=== PATIENT | female | born 1945 | race Caucasian/White ===

== ENCOUNTER 2022-11-01 08:54 | Inpatient (IN) | payer OTHER ==
[~2022-11-01] VITALS: Ht 154.9 cm; Wt 63.0 kg
--- NOTE | 2022-11-01 09:04 | NUR ---
COVID TEST COLLECTED AND SENT
--- NOTE | 2022-11-01 09:18 | NUR ---
IV established in R FA 20G
--- NOTE | 2022-11-01 09:19 | NUR ---
Blood drawn and sent to lab
[2022-11-01 09:31] LABS: BASOPHILS % (AUTO) 0.1 % (0.0-2.0); EOSINOPHILS % (AUTO) 0.4 % (0.0-6.0); HEMATOCRIT 34 % (33-45); HEMOGLOBIN 10.7 g/dL (11.5-14.8); LYMPHOCYTES # (AUTO) 0.2 K/uL (0.8-4.8); LYMPHOCYTES % (AUTO) 1.8 % (20.0-44.0); MEAN CORPUSCULAR HGB CONC 32 g/dl (31.0-36.0); MEAN CORPUSCULAR VOLUME 98 fL (82-100); MONOCYTES # (AUTO) 0.6 K/uL (0.1-1.30); MONOCYTES % (AUTO) 4.9 % (2.0-12.0); NEUTROPHILS # (AUTO) 10.8 K/uL (1.8-8.9); NEUTROPHILS % (AUTO) 92.8 % (43.0-81.0); PLATELET COUNT (AUTO) 131 K/uL (150-450); RED BLOOD CELL COUNT(AUTO) 3.44 MIL/uL (4.0-5.2); WHITE BLOOD COUNT (AUTO) 11.7 K/uL (4.3-11.0)
[2022-11-01 09:42] LABS: CALCIUM, SERUM 10.8 mg/dL (8.5-10.1); CARBON DIOXIDE 21 mmol/L (21-32); CHLORIDE 105 mmol/L (98-107); CREATININE 1.4 mg/dL (0.6-1.3); POTASSIUM 4.1 mmol/L (3.5-5.1); SODIUM SERUM 139 mmol/L (136-145); UREA NITROGEN, BLOOD 45 mg/dL (7-18)
[2022-11-01 09:45] LABS: GLUCOSE 492 mg/dL (74-106)
[2022-11-01 09:46] LABS: BAND % (MANUAL) 2 % (0.0-5.0); LYMPHOCYTES % (MANUAL) 2 % (16-48); MONOCYTES % (MANUAL) 4 % (0-11.0); NEUTROPHILS % (MANUAL) 92 (42-76)
--- NOTE | 2022-11-01 09:48 | NUR ---
PT TAKEN TO CT VIA LC
[2022-11-01 09:52] LABS: ALANINE AMINOTRANSFERASE 24 U/L (12-78); ALBUMIN 2.5 g/dL (3.4-5.0); ALKALINE PHOSPHATASE 128 U/L (46-116); ASPARTATE AMINOTRANSFERASE 18 U/L (15-37); BILIRUBIN,DIRECT 0.2 mg/dL (0.0-0.2); BILIRUBIN,TOTAL 0.6 mg/dL (0.2-1.0); TOTAL PROTEIN, SERUM 7.5 g/dL (6.4-8.2)
--- NOTE | 2022-11-01 09:54 | NUR ---
PT RETURNED FROM CT VIA [facility]
[2022-11-01] MEDS ORDERED: INSULIN REGULAR, HUMAN 100 UNIT/ML 10 ML VIAL ONE (09:58)
[2022-11-01] MEDS ORDERED: INSULIN REGULAR, HUMAN 100 UNIT/ML 10 ML VIAL SQ ONE (10:00)
[2022-11-01] MEDS ORDERED: IV NS 0.9% 1,000 ML BAG IV ONE (10:00)
--- NOTE | 2022-11-01 10:13 | NUR ---
urine collected and sent to lab
--- NOTE | 2022-11-01 10:27 | NUR ---
Blood cultures obtained and sent to lab
--- NOTE | 2022-11-01 10:45 | NUR ---
BUDGET EXAMINER CALLED
--- NOTE | 2022-11-01 10:58 | NUR ---
CALLED NURSING SUP REGARDING PT BED
[2022-11-01 11:16] LABS: BILIRUBIN,URINE NEGATIVE (NEGATIVE); COLOR,URINE YELLOW (YELLOW); LEUKOCYTE ESTERASE ,URINE TRACE (NEGATIVE); NITRITE, URINE NEGATIVE (NEGATIVE); PROTEIN,URINE 2+ mg/dl (NEGATIVE); UGLUCOSE 3+ mg/dL (NEGATIVE)
[2022-11-01] MEDS ORDERED: DEXTROSE 50%-WATER 50 ML DISP.SYRIN IV PRN (11:30)
[2022-11-01] MEDS ORDERED: MAGNESIUM HYDROXIDE 30 ML UDC PO PRN (11:30)
[2022-11-01] MEDS ORDERED: MAG HYDROX/AL HYDROX/SIMETH 30 ML UDC PO PRN (11:30)
[2022-11-01] MEDS ORDERED: Z GUARD REMEDY 4 OZ OINT TP PRN (11:30)
[2022-11-01] MEDS ORDERED: ONDANSETRON HCL/PF 4 MG/2 ML VIAL IVP PRN (11:30)
--- NOTE | 2022-11-01 11:32 | NUR ---
REPORT GIVEN TO JUDI FOR CONTINUATION OF CARE
[2022-11-01 11:51] LABS: BACTERIA,URINE Many /HPF (None Seen); SQUAMOUS EPITHELIAL CELL,UR Few /HPF (None Seen); WBC,URINE 21-50 /HPF (0-3)
[2022-11-01 12:00] VITALS: BP 131/80
[2022-11-01] MEDS: ENOXAPARIN SODIUM 30 MG/0.3 ML DISP.SYRIN SQ SCH (12:03)
[2022-11-01] MEDS: INSULIN REGULAR, HUMAN 100 UNIT/ML 3 ML VIAL SQ PRN ×3 (12:03→21:56)
[2022-11-01] MEDS: BLOOD SUGAR DIAGNOSTIC 1 EACH STRIP VI SCH ×3 (12:04→21:54)
[2022-11-01] MEDS ORDERED: ATOR40TA GT (13:44)
[2022-11-01] MEDS ORDERED: METO25TA6 PO (13:44)
[2022-11-01] MEDS ORDERED: SERT100T PO ×2 (13:44)
[2022-11-01] MEDS ORDERED: METF-440 PO (13:44)
[2022-11-01] MEDS ORDERED: PANT40TA2 PO (13:44)
[2022-11-01] MEDS ORDERED: AMLO-213 PO (13:44)
[2022-11-01] MEDS ORDERED: LOSA25TA27 PO (13:44)
[2022-11-01] MEDS ORDERED: CETI10TA14 PO (13:44)
--- NOTE | 2022-11-01 13:50 | NUR ---
PUT PATIENT'S HOME MED IN THE COMPUTER. I INFORMED DR. VIKI GASTELUM TO RECONCILE MEDS.
[2022-11-01 16:00] VITALS: BP 146/72
[2022-11-01] MEDS: METOPROLOL TARTRATE 25 MG TABLET PO SCH (17:01)
[2022-11-01] MEDS: ACETAMINOPHEN 325 MG TABLET PO PRN (17:01)
--- NOTE | 2022-11-01 17:59 | NUR ---
END OF SHIFT SUMMARY PATIENT IS A/O X3-4. ENGLISH SPEAKING ONLY. SR ON TELE. FEBRILE, TYLENOL GIVEN. IV ACCESS ON RFA #20, NS RUNNING AT 75 ML/HR. BLOOD GLUCOSE MONITORED, INSULIN GIVEN PER MD-SLIDING SCALE. FAMILY AT BEDSIDE. SAFETY MEASURES MAINTAINED. BED IN LOWEST POSITION, BRAKES LOCKED. SIDE RAILS UP X2. CALL LIGHT WITHIN REACH. WILL ENDORSE CONTINUITY OF CARE TO ONCOMING SHIFT.
[2022-11-01 20:00] VITALS: BP 117/47
[2022-11-01] MEDS: IV NS 0.9% 1,000 ML IV PRN (20:41)
--- NOTE | 2022-11-01 21:56 | NUR ---
ACCU CHECK Blood glucose 264mg/dl. Given insulin per sliding scale parameters.
[2022-11-02] VITALS: BP 133/57
--- NOTE | 2022-11-02 05:53 | NUR ---
END OF SHIFT REPORT Patient in bed, Alert Oriented x3. Oxygen sat high 90's in RA. Sinus rhythm in the nailing machine feeder, HR 99. IV Right arm intact, IVF continuous. Low grade temp during the night 99F, no c/o chills. Blood glucose monitored with insulin given per sliding parameters. Voided urine, incontinent care done. Plan for PT eval. Nephro consult. Continue IVF as ordered. Fall precaution maintained. Will endorse to oncoming RN.
[2022-11-02] MEDS: BLOOD SUGAR DIAGNOSTIC 1 EACH STRIP VI SCH ×4 (06:18→22:46)
[2022-11-02 06:22] LABS: BASOPHILS % (AUTO) 0.1 % (0.0-2.0); EOSINOPHILS % (AUTO) 0.6 % (0.0-6.0); HEMATOCRIT 30 % (33-45); HEMOGLOBIN 9.7 g/dL (11.5-14.8); LYMPHOCYTES # (AUTO) 0.4 K/uL (0.8-4.8); LYMPHOCYTES % (AUTO) 3.3 % (20.0-44.0); MEAN CORPUSCULAR HGB CONC 33 g/dl (31.0-36.0); MEAN CORPUSCULAR VOLUME 94 fL (82-100); MONOCYTES # (AUTO) 0.8 K/uL (0.1-1.30); MONOCYTES % (AUTO) 7.8 % (2.0-12.0); NEUTROPHILS # (AUTO) 9.6 K/uL (1.8-8.9); NEUTROPHILS % (AUTO) 88.2 % (43.0-81.0); PLATELET COUNT (AUTO) 102 K/uL (150-450); RED BLOOD CELL COUNT(AUTO) 3.15 MIL/uL (4.0-5.2); WHITE BLOOD COUNT (AUTO) 10.9 K/uL (4.3-11.0)
[2022-11-02] MEDS: INSULIN REGULAR, HUMAN 100 UNIT/ML 3 ML VIAL SQ PRN ×4 (06:37→22:50)
[2022-11-02] MEDS: IV NS 0.9% 1,000 ML IV PRN (06:38)
[2022-11-02 06:49] LABS: CALCIUM, SERUM 9.5 mg/dL (8.5-10.1); CARBON DIOXIDE 21 mmol/L (21-32); CHLORIDE 110 mmol/L (98-107); GLUCOSE 175 mg/dL (74-106); MAGNESIUM 1.4 mg/dL (1.8-2.4); PHOSPHORUS 2.7 mg/dL (2.5-4.9); POTASSIUM 3.4 mmol/L (3.5-5.1); SODIUM SERUM 143 mmol/L (136-145); UREA NITROGEN, BLOOD 34 mg/dL (7-18)
--- NOTE | 2022-11-02 07:16 | NUR ---
FURNACE FILLER NOTES RECEIVED PATIENT AWAKE IN BED. PATIENT IS A/O X3-4. [place]UR[place] AND [place] SPEAKING ONLY. ON ROOM AIR, TOLERATING WELL, BREATHING EVENLY AND UNLABORED. PATIENT CONTINUES ON TELE MONITORING WITH CURRENT READING OF SR 85. IV ACCESS ON RFA G#20, NS RUNNING AT 75 ML/HR PATENT, INTACT, AND FLUSHES WELL. NO SOB, DENIES PAIN OR ANY DISCOMFORT AT THIS TIME. SAFETY MEASURES MAINTAINED. BED IN LOWEST POSITION, BRAKES LOCKED. SIDE RAILS UP X2. CALL LIGHT WITHIN REACH. WILL CONTINUE TO MONITOR PATIENT.
[2022-11-02] MEDS ORDERED: POTASSIUM CHLORIDE 20 MEQ TAB.PRT.SR PO ONE (07:30)
[2022-11-02] MEDS ORDERED: MAGNESIUM OXIDE 400 MG TABLET PO ONE (07:30)
[2022-11-02 08:00] VITALS: BP 137/60
[2022-11-02] MEDS: CEFTRIAXONE 1 G in IV D5W 50 ML IV SCH (08:21)
[2022-11-02] MEDS: cetrizine 10 MG TABLET PO SCH (08:23)
[2022-11-02] MEDS: METOPROLOL TARTRATE 25 MG TABLET PO SCH ×2 (08:23→16:18)
[2022-11-02] MEDS: PANTOPRAZOLE 40 MG TABLET.DR PO SCH (08:23)
[2022-11-02] MEDS: SERTRALINE HCL 50 MG TABLET PO SCH (08:23)
[2022-11-02] MEDS: LOSARTAN POTASSIUM 25 MG TABLET PO SCH (08:23)
[2022-11-02] MEDS: ATORVASTATIN 40 MG TABLET GT SCH (08:24)
[2022-11-02] MEDS: ENOXAPARIN SODIUM 30 MG/0.3 ML DISP.SYRIN SQ SCH (08:28)
[2022-11-02] MEDS: AMLODIPINE BESYLATE 10 MG TABLET PO SCH (08:29)
[2022-11-02] MEDS ORDERED: POTASSIUM CHLORIDE 20 MEQ POWDER PACKET PO ONE (09:00)
[2022-11-02] MEDS ORDERED: DORZ10DR11 EACHEYE (10:31)
[2022-11-02] MEDS ORDERED: TRAZ-182 PO (10:31)
[2022-11-02] MEDS ORDERED: INSU100I14 SQ (10:31)
[2022-11-02] MEDS ORDERED: INSU100V7 SQ (10:31)
[2022-11-02] MEDS ORDERED: LATA2.5D15 EACHEYE (10:31)
[2022-11-02] MEDS ORDERED: Magnesium 1GM/D5W 100ML PREMIX 100 ML IV SCH (11:00)
[2022-11-02 12:32] VITALS: BP 124/61
[2022-11-02] MEDS: ACETAMINOPHEN 325 MG TABLET PO PRN (12:38)
[2022-11-02 16:00] VITALS: BP 109/52
--- NOTE | 2022-11-02 18:41 | NUR ---
INTERMEDIATE ACCOUNTANT CLOSING NOTES PATIENT AWAKE IN BED. PATIENT IS A/O X4, PARAGUAYAN SPEAKING ONLY. ON ROOM AIR, TOLERATING WELL, BREATHING EVENLY AND UNLABORED. PATIENT CONTINUES ON TELE MONITORING WITH CURRENT READING OF SR 95. IV ACCESS ON RFA G#20, NS RUNNING AT 75 ML/HR PATENT, INTACT, AND FLUSHES WELL. NO SOB, DENIES PAIN OR ANY DISCOMFORT AT THIS TIME. ADMINISTERED MEDICATIONS PRESCRIBED. SAFETY MEASURES MAINTAINED. BED IN LOWEST POSITION, BRAKES LOCKED. SIDE RAILS UP X2. CALL LIGHT WITHIN REACH. WILL ENDORSE TO THE SOFTBALL UMPIRE NURSE FOR CLIFFORD.
--- NOTE | 2022-11-02 19:55 | NUR ---
MS RN OPENING NOTE RECEIVED PATIENT AWAKE IN BED. PATIENT IS A/O X3-4. [place] KOREAN SPEAKING ONLY. ON ROOM AIR, TOLERATING WELL, BREATHING EVENLY AND UNLABORED. IV ACCESS TO RIGHT FA G#20, WITH NS RUNNING AT 75 ML/HR. NO SOB, DENIES PAIN OR DISCOMFORT AT THIS TIME. SAFETY MEASURES MAINTAINED. BED IN LOWEST POSITION, BRAKES ON. SIDE RAILS UP X2. CALL LIGHT WITHIN REACH. WILL CONTINUE TO MONITOR PATIENT.
[2022-11-02 20:39] VITALS: BP 127/64
--- NOTE | 2022-11-02 23:30 | NUR ---
MS RN NOTE LAB CALLED TO INFORM THAT PT HAS GRAM POSITIVE RODS IN BOTH AEROBIC, AND ANAEROBIC BOTTLE OF BLOOD CULTURE. MD TUTTLE CALLED, AND MADE AWARE. ORDER RECEIVED FOR DR TUTTLE TO ORDER [facility] TO DOSE. ORDER CARRIED OUT, AND IMPLEMENTED. PHARMACY ALSO CALLED TO DOSE [facility].
[2022-11-03] MEDS ORDERED: VANCOMYCIN 1 GM in IV D5W 250ml IV ONE (00:30)
[2022-11-03] MEDS ORDERED: VANCOMYCIN 1 GM /D5W 250 ML PB IV ONE (00:54)
--- NOTE | 2022-11-03 02:40 | NUR ---
MS RN NOTE PT LEFT IN STABLE CONDITION. ENDORSE PT TO NURSE BRYAN FOR CLIFFORD.
[2022-11-03] MEDS: IV NS 0.9% 1,000 ML IV PRN ×2 (04:25→23:16)
[2022-11-03] MEDS: BLOOD SUGAR DIAGNOSTIC 1 EACH STRIP VI SCH ×4 (06:45→23:16)
[2022-11-03] MEDS: INSULIN REGULAR, HUMAN 100 UNIT/ML 3 ML VIAL SQ PRN ×4 (06:48→23:15)
--- NOTE | 2022-11-03 06:54 | NUR ---
MS RN CLOSING NOTE PATIENT AWAKE IN BED. PATIENT IS A/O X3-4. LIBERIAN SPEAKING ONLY. ON ROOM AIR, TOLERATING WELL, BREATHING EVENLY AND UNLABORED. IV ACCESS TO RIGHT FA G#20, WITH NS RUNNING AT 75 ML/HR. NO SOB, DENIES PAIN OR DISCOMFORT AT THIS TIME. SAFETY MEASURES MAINTAINED. BED IN LOWEST POSITION, BRAKES ON. SIDE RAILS UP X2. CALL LIGHT WITHIN REACH. WILL CONTINUE TO MONITOR PATIENT. WILL ENDORSE TO NEXT SHIFT NURSE FOR CONTINUITY OF CARE.
[2022-11-03 07:00] VITALS: BP 129/56
--- NOTE | 2022-11-03 07:03 | NUR ---
MS RN OPENING NOTES RECEIVED PATIENT SLEEPING IN BED, A/Ox3, LITHUANIAN SPEAKING. ABLE TO VERBALIZE NEEDS. ON ROOM AIR NO S/S OF RESPIRATORY DISTRESS. IV ACCESS R WRIST #22 G RUNNING NS @75 ML/HR. INTACT AND PATENT. PATIENT IS ON BEDREST, HAS PUREWICK. NO S/S OF PAIN OR DISCOMFORT NOTED. SKIN INTACT. SAFETY MEASURES IN PLACE: BED LOCKED AND IN LOWEST POSITION, HOB ELEVATED, CALL LIGHT WITHIN REACH, SIDE RAILS UPx2. WILL CONTINUE TO MONITOR.
[2022-11-03] MEDS: CEFTRIAXONE 1 G in IV D5W 50 ML IV SCH (08:30)
[2022-11-03] MEDS: PANTOPRAZOLE 40 MG TABLET.DR PO SCH (08:31)
[2022-11-03] MEDS: SERTRALINE HCL 50 MG TABLET PO SCH (08:31)
[2022-11-03] MEDS: ATORVASTATIN 40 MG TABLET GT SCH (08:31)
[2022-11-03] MEDS: cetrizine 10 MG TABLET PO SCH (08:31)
[2022-11-03] MEDS: METOPROLOL TARTRATE 25 MG TABLET PO SCH ×2 (08:32→17:08)
[2022-11-03] MEDS: LOSARTAN POTASSIUM 25 MG TABLET PO SCH (08:32)
[2022-11-03] MEDS: AMLODIPINE BESYLATE 10 MG TABLET PO SCH (08:32)
[2022-11-03] MEDS: ENOXAPARIN SODIUM 30 MG/0.3 ML DISP.SYRIN SQ SCH (09:00)
--- NOTE | 2022-11-03 09:37 | NUR ---
RN NOTES HOLDING [employer], PT PLATELETS 102, MD NOTIFIED.
[2022-11-03] MEDS ORDERED: MAGNESIUM OXIDE 400 MG TABLET PO ONE (10:00)
[2022-11-03 16:00] VITALS: BP 130/56
--- NOTE | 2022-11-03 18:40 | NUR ---
MS RN CLOSING NOTES PATIENT AWAKE IN BED, A/Ox3, MACANESE SPEAKING. ABLE TO VERBALIZE NEEDS. STABLE ON ROOM AIR NO S/S OF RESPIRATORY DISTRESS. IV ACCESS R WRIST #22 G RUNNING NS @75 ML/HR. INTACT AND PATENT. PATIENT IS ON BEDREST, HAS PUREWICK. NO S/S OF PAIN OR DISCOMFORT NOTED. SKIN INTACT. SAFETY MEASURES MAINTAINED: BED LOCKED AND IN LOWEST POSITION, HOB ELEVATED, CALL LIGHT WITHIN REACH, SIDE RAILS UPx2. WILL ENDORSE TO NEXT SHIFT ANY CLIFFORD.
--- NOTE | 2022-11-03 19:30 | NUR ---
MS RN OPENING NOTE RECEIVED PATIENT AWAKE IN BED. PATIENT IS A/O X3-4. HUNGARIAN SPEAKING ONLY. ON ROOM AIR, TOLERATING WELL, BREATHING EVENLY AND UNLABORED. IV ACCESS TO RIGHT WRIST G#22, WITH NS RUNNING AT 75 ML/HR. NO SOB, DENIES PAIN OR DISCOMFORT AT THIS TIME. PT ON PUREWICK. SAFETY MEASURES MAINTAINED. BED IN LOWEST POSITION. SIDE RAILS UP X2. CALL LIGHT WITHIN REACH. WILL CONTINUE TO MONITOR PATIENT.
[2022-11-03 20:00] VITALS: BP 117/56
[2022-11-03] MEDS ORDERED: VANCOMYCIN 1 GM in IV D5W 250 ML IV SCH (23:00)
[2022-11-03] MEDS: *INSULIN REGULAR(HUMULIN R)HUM 100 UNIT/ML VIAL SQ PRN (23:27)
[2022-11-04 06:04] LABS: BASOPHILS % (AUTO) 0.1 % (0.0-2.0); EOSINOPHILS % (AUTO) 1.3 % (0.0-6.0); HEMATOCRIT 29 % (33-45); HEMOGLOBIN 9.2 g/dL (11.5-14.8); LYMPHOCYTES # (AUTO) 0.5 K/uL (0.8-4.8); LYMPHOCYTES % (AUTO) 4.3 % (20.0-44.0); MEAN CORPUSCULAR HGB CONC 32 g/dl (31.0-36.0); MEAN CORPUSCULAR VOLUME 96 fL (82-100); MONOCYTES # (AUTO) 0.7 K/uL (0.1-1.30); MONOCYTES % (AUTO) 6.1 % (2.0-12.0); NEUTROPHILS # (AUTO) 9.7 K/uL (1.8-8.9); NEUTROPHILS % (AUTO) 88.2 % (43.0-81.0); PLATELET COUNT (AUTO) 101 K/uL (150-450); RED BLOOD CELL COUNT(AUTO) 2.98 MIL/uL (4.0-5.2)
[2022-11-04 06:15] LABS: CALCIUM, SERUM 8.6 mg/dL (8.5-10.1); CREATININE 1.1 mg/dL (0.6-1.3); MAGNESIUM 1.7 mg/dL (1.8-2.4); POTASSIUM 3.5 mmol/L (3.5-5.1)
--- NOTE | 2022-11-04 06:30 | NUR ---
MS RN CLOSING NOTE LEFT PATIENT AWAKE IN BED. PATIENT IS A/O X3-4. [place] SPEAKING ONLY. ON ROOM AIR, TOLERATING WELL, BREATHING EVENLY AND UNLABORED. IV ACCESS TO RIGHT WRIST G#22, WITH NS RUNNING AT 75 ML/HR. NO SOB, DENIES PAIN OR DISCOMFORT AT THIS TIME. PT ON PUREWICK. SAFETY MEASURES MAINTAINED. BED IN LOWEST POSITION. SIDE RAILS UP X2. CALL LIGHT WITHIN REACH. WILL ENDORSE PT TO AM SHIFT RN FOR CLIFFORD.
[2022-11-04] MEDS: BLOOD SUGAR DIAGNOSTIC 1 EACH STRIP VI SCH ×4 (06:46→22:03)
[2022-11-04] MEDS: INSULIN REGULAR, HUMAN 100 UNIT/ML 3 ML VIAL SQ PRN ×3 (06:51→17:17)
[2022-11-04 07:00] VITALS: BP 127/58
--- NOTE | 2022-11-04 07:59 | NUR ---
MS RN OPENING NOTE RECEIVED PATIENT AWAKE IN BED. PATIENT IS A/O X3-4. PORTUGUESE SPEAKING ONLY. ON ROOM AIR, TOLERATING WELL, BREATHING EVENLY AND UNLABORED. IV ACCESS TO RIGHT WRIST G#22, WITH NS RUNNING AT 75 ML/HR. NO SOB, DENIES PAIN OR DISCOMFORT AT THIS TIME. PT ON PUREWICK. NO COMPLAINT OF PAIN OR DISCOMFORT AT THIS TIME. SAFETY MEASURES MAINTAINED. BED IN LOWEST POSITION. SIDE RAILS UP X2. CALL LIGHT WITHIN REACH. WILL CONTINUE TO MONITOR PATIENT.
[2022-11-04] MEDS: CEFTRIAXONE 1 G in IV D5W 50 ML IV SCH (08:55)
[2022-11-04] MEDS: ATORVASTATIN 40 MG TABLET GT SCH (09:02)
[2022-11-04] MEDS: PANTOPRAZOLE 40 MG TABLET.DR PO SCH (09:02)
[2022-11-04] MEDS: METOPROLOL TARTRATE 25 MG TABLET PO SCH ×2 (09:02→17:14)
[2022-11-04] MEDS: LOSARTAN POTASSIUM 25 MG TABLET PO SCH (09:03)
[2022-11-04] MEDS: cetrizine 10 MG TABLET PO SCH (09:04)
[2022-11-04] MEDS: SERTRALINE HCL 50 MG TABLET PO SCH (09:04)
[2022-11-04] MEDS: AMLODIPINE BESYLATE 10 MG TABLET PO SCH (09:04)
[2022-11-04] MEDS: ENOXAPARIN SODIUM 30 MG/0.3 ML DISP.SYRIN SQ SCH (09:09)
[2022-11-04] MEDS ORDERED: MAGNESIUM OXIDE 400 MG TABLET PO ONE (10:00)
[2022-11-04] MEDS: IV NS 0.9% 1,000 ML IV PRN (15:53)
[2022-11-04 16:00] VITALS: BP 125/56
--- NOTE | 2022-11-04 18:15 | NUR ---
MS RN CLOSING NOTES: PATIENT AWAKE IN BED, A/O X3-4. [place] SPEAKING ONLY. ON ROOM AIR, TOLERATING WELL, BREATHING EVENLY AND UNLABORED. IV ACCESS TO RIGHT WRIST G#22, WITH NS RUNNING AT 75 ML/HR. NO SOB, DENIES PAIN OR DISCOMFORT AT THIS TIME. PT ON PUREWICK WITH TOTAL OUTPUT OF 250ML. NO COMPLAINT OF PAIN OR DISCOMFORT AT THIS TIME. ALL DUE MEDS GIVEN. CARE RENDERED. SAFETY MEASURES MAINTAINED. BED IN LOWEST POSITION. SIDE RAILS UP X2. CALL LIGHT WITHIN REACH. ALL NEEDS MET ENDORSE TO INCOMING SHIFT.
--- NOTE | 2022-11-04 19:47 | NUR ---
MS RN OPENING NOTE PATIENT AWAKE IN BED, ALERT/ORIENTED X 4, PT ABLE TO MAKE NEEDS KNOWN. PATIENT STABLE ON RA, NO S/S OF DISTRESS OR SOB NOTED, BREATHING EVEN AND UNLABORED. IV ACCESS ON RIGHT WRIST #22G INTACT AND INFUSING NS @ 75 ML/HR. PUREWICK IN PLACE AND DRAINING YELLOW URINE BY GRAVITY. SAFETY MEASURES IN PLACE: CALL LIGHT WITHIN REACH, SIDE RAILS UP X 3, BED LOCKED IN LOWEST POSITION, HOB ELEVATED, BED ALARM ON. WILL CONTINUE TO MONITOR PATIENT
[2022-11-04 20:00] VITALS: BP 120/53
[2022-11-04] MEDS: *INSULIN REGULAR(HUMULIN R)HUM 100 UNIT/ML VIAL SQ PRN (22:06)
--- NOTE | 2022-11-04 22:48 | NUR ---
MS RN NOTE PER DR. GASTELUM PROGRESS NOTES, [facility] D/T GRAM NEGATIVE RODS ON CULTURE, HOWEVER ORDER FOR [facility] HAS NOT BEEN STOPPED AND DOSE DUE AT 2300. SPOKE TO MITTEN STITCHER VISCOSE CELLAR CHARGE HAND GINA TUTTLE ON THE FLOOR, PER MARRY [place] [facility] AND DON'T GIVE DOSE. ORDER CARRIED OUT
[2022-11-05] MEDS: IV NS 0.9% 1,000 ML IV PRN (05:14)
[2022-11-05 05:49] LABS: BASOPHILS % (AUTO) 0.1 % (0.0-2.0); EOSINOPHILS % (AUTO) 1.3 % (0.0-6.0); HEMATOCRIT 28 % (33-45); HEMOGLOBIN 9.4 g/dL (11.5-14.8); LYMPHOCYTES # (AUTO) 0.6 K/uL (0.8-4.8); LYMPHOCYTES % (AUTO) 4.6 % (20.0-44.0); MEAN CORPUSCULAR HGB CONC 33 g/dl (31.0-36.0); MEAN CORPUSCULAR VOLUME 93 fL (82-100); MONOCYTES # (AUTO) 0.6 K/uL (0.1-1.30); MONOCYTES % (AUTO) 4.7 % (2.0-12.0); NEUTROPHILS # (AUTO) 11.1 K/uL (1.8-8.9); NEUTROPHILS % (AUTO) 89.3 % (43.0-81.0); PLATELET COUNT (AUTO) 128 K/uL (150-450); RED BLOOD CELL COUNT(AUTO) 3.06 MIL/uL (4.0-5.2); WHITE BLOOD COUNT (AUTO) 12.5 K/uL (4.3-11.0)
[2022-11-05 06:23] LABS: CALCIUM, SERUM 8.5 mg/dL (8.5-10.1); CARBON DIOXIDE 19 mmol/L (21-32); CHLORIDE 105 mmol/L (98-107); CREATININE 1.1 mg/dL (0.6-1.3); GLUCOSE 217 mg/dL (74-106); POTASSIUM 3.4 mmol/L (3.5-5.1); SODIUM SERUM 133 mmol/L (136-145); UREA NITROGEN, BLOOD 28 mg/dL (7-18)
[2022-11-05] MEDS: INSULIN REGULAR, HUMAN 100 UNIT/ML 3 ML VIAL SQ PRN ×3 (06:42→17:12)
[2022-11-05] MEDS: BLOOD SUGAR DIAGNOSTIC 1 EACH STRIP VI SCH ×3 (06:42→17:12)
--- NOTE | 2022-11-05 07:03 | NUR ---
MS RN CLOSING NOTE PATIENT AWAKE IN BED, ALERT/ORIENTED X 4, PT ABLE TO MAKE NEEDS KNOWN. PATIENT STABLE ON RA, NO S/S OF DISTRESS OR SOB NOTED, BREATHING EVEN AND UNLABORED. IV ACCESS ON RIGHT WRIST #22G INTACT AND INFUSING NS @ 75 ML/HR. PUREWICK IN PLACE AND DRAINING YELLOW URINE BY GRAVITY, PUREWICK CHANGED THIS AM, 500 ML OUTPUT. NO SIGNIFICANT CHANGES THIS SHIFT, MEDICATIONS GIVEN ORDERED, PT NEEDS MET. SAFETY MEASURES IN PLACE: CALL LIGHT WITHIN REACH, SIDE RAILS UP X 3, BED LOCKED IN LOWEST POSITION, HOB ELEVATED, BED ALARM ON. WILL ENDORSE TO DAYSHIFT RN FOR CONTINUITY OF CARE
--- NOTE | 2022-11-05 07:46 | NUR ---
MS RN OPENING NOTE PATIENT SLEEPING IN BED, ALERT/ORIENTED X 4, PT ABLE TO MAKE NEEDS KNOWN. PATIENT STABLE ON RA, NO S/S OF DISTRESS OR SOB NOTED, BREATHING EVEN AND UNLABORED. IV ACCESS ON RIGHT WRIST #22G INTACT AND INFUSING NS @ 75 ML/HR. PUREWICK IN PLACE AND DRAINING YELLOW URINE BY GRAVITY.NEEDS MET. SAFETY MEASURES IN PLACE: CALL LIGHT WITHIN REACH, SIDE RAILS UP X 3, BED LOCKED IN LOWEST POSITION, HOB ELEVATED, BED ALARM ON. WILL CONTINUE TO MONITOR.
[2022-11-05 08:00] VITALS: BP 120/55
[2022-11-05] MEDS: LOSARTAN POTASSIUM 25 MG TABLET PO SCH (08:20)
[2022-11-05] MEDS: CEFTRIAXONE 1 G in IV D5W 50 ML IV SCH (08:20)
[2022-11-05] MEDS: METOPROLOL TARTRATE 25 MG TABLET PO SCH ×2 (08:21→17:08)
[2022-11-05] MEDS: cetrizine 10 MG TABLET PO SCH (08:21)
[2022-11-05] MEDS: AMLODIPINE BESYLATE 10 MG TABLET PO SCH (08:21)
[2022-11-05] MEDS: PANTOPRAZOLE 40 MG TABLET.DR PO SCH (08:21)
[2022-11-05] MEDS: ATORVASTATIN 40 MG TABLET GT SCH (08:21)
[2022-11-05] MEDS: SERTRALINE HCL 50 MG TABLET PO SCH (08:22)
[2022-11-05] MEDS: ENOXAPARIN SODIUM 30 MG/0.3 ML DISP.SYRIN SQ SCH (08:26)
[2022-11-05] MEDS ORDERED: LEVO500T90 PO (08:29)
[2022-11-05] MEDS ORDERED: POTASSIUM CHLORIDE 20 MEQ TAB.PRT.SR PO SCH (10:00)
[2022-11-05 16:00] VITALS: BP 127/56
[2022-11-05 17:08] VITALS: BP 127/60
--- NOTE | 2022-11-05 19:25 | NUR ---
DISCHARGED NOTES PATIENT DISCHARGED TO HOME IN STABLE CONDITION, A/OX3. ON RA, TOLERATING WELL. VITALS TAKEN, STABLE AND RECORDED. DISCHARGED INSTRUCTIONS/ EDUCATION RELAYED TO DAUGHTER. MEDICATIONS FROM PHARMACY TAKEN AND GIVEN TO PATIENT. ALL BELONGINGS ACCOUNTED TO THE PATIENT. IV ACCESS REMOVED ASEPTICALLY. PATIENT LEFT THE UNIT VIA GURNEY ACCOMPANIED BY AMBULANCE STAFF. DISCHARGED.
== END 2022-11-05 19:25 | disposition home health service (06) | DRG 420 ==
LOC: EDSEX 09:03 → ER 09:03 → TELE 11:34 → MED 11-02 22:04
PROVIDERS: ADMIT Internal Medicine; ATTEND Internal Medicine
DX: E11.00 Type 2 diabetes mellitus with hyperosmolarity without nonketotic hyperglycemic-hyperosmolar coma (NKHHC) (principal); N17.0 Acute kidney failure with tubular necrosis; G93.41 Metabolic encephalopathy; E43 Unspecified severe protein-calorie malnutrition; R78.81 Bacteremia; E87.20 Acidosis, unspecified; E86.0 Dehydration; W19.XXXA Unspecified fall, initial encounter; E88.09 Other disorders of plasma-protein metabolism, not elsewhere classified; N12 Tubulo-interstitial nephritis, not specified as acute or chronic; Z20.822 Contact with and (suspected) exposure to COVID-19; M47.816 Spondylosis without myelopathy or radiculopathy, lumbar region; Y92.009 Unspecified place in unspecified non-institutional (private) residence as the place of occurrence of the external cause; I10 Essential (primary) hypertension; E78.00 Pure hypercholesterolemia, unspecified; N39.0 Urinary tract infection, site not specified; D64.9 Anemia, unspecified; E83.52 Hypercalcemia; E87.1 Hypo-osmolality and hyponatremia; M47.814 Spondylosis without myelopathy or radiculopathy, thoracic region; B96.20 Unspecified Escherichia coli [E. coli] as the cause of diseases classified elsewhere; E87.6 Hypokalemia; Z79.84 Long term (current) use of oral hypoglycemic drugs; Z79.899 Other long term (current) drug therapy
CPT/HCPCS: 36415; 71045-TC; 72128-TC; 72131-TC; 80048-TC; 80076-TC; 81001; 82962-TC; 83605-TC; 83735-TC; 84100-TC; 84484-TC; 85025-TC; 85730-TC; 86850-TC; 87040-TC; 87081-TC; 87086-TC; 97110-TC; 97116-TC; 97530-TC; A4223; C9803; G0378; J0696; J1650; J1815; J3370; J7030; J7060